=== PATIENT | male | born 1965 | race Caucasian/White ===

== ENCOUNTER 2018-03-04 11:36 | Outpatient (CLI) | payer OTHER ==
[2014-11-14 09:11] VITALS: BP 109/66
--- NOTE | 2018-03-04 18:03 | Diagnostic Imaging Report ---
DORETHA CHEEK [facility] [address] [facility] [address] [place], [place]. [address] Report Submission Date: March 04, 2018 12:28:12 PM CDT Patient Study Name: NIRMAL LANE Date: March 04, 2018 11:46:18 AM CDT Modality Type: DX Gender: M Description: SPINE : 69 Institution: [facility] Physician: DORETHA CHEEK Examination: Plain film lumbar spine History: PT C/O LOW BACK PAIN AFTER CRASHING ON A MOWER 2 WEEKS AGO. (Hx) Findings: 3 views of the lumbar spine demonstrates mild wedging of the L1 vertebral body. Scattered osteophytes. No abnormal listhesis. No prevertebral normality. Impression: Mild L1 wedging: chronicity indeterminate without older exams. Scattered degenerative changes. Consider obtaining MRI to evaluate for marrow edema. Electronically signed on March 04, 2018 12:28:12 PM CDT by: Satya URIAS
== END 2018-03-04 11:38 ==
LOC: RAD 11:36
PROVIDERS: ATTEND Family Medicine
DX: M54.5 Low back pain (principal)
CPT/HCPCS: 72100

== ENCOUNTER 2018-05-05 14:32 | Emergency (ER) | payer BC, OTHER ==
--- NOTE | 2018-05-05 14:48 | ED Physician Documentation ---
General Adult - HISTORIAN Historian: patient - HPI Stated Complaint: R thumb pain Chief Complaint: Upper Extremity Injury Timing: still present - ROS CONST: no problems. denies: fever, chills - PAST HX Past History: hypertension, other Allergies/Adverse Reactions: Allergies Allergy/AdvReac Type Severity Reaction Status Date / Time No Known Allergies Allergy Verified 05/05/18 14:43 Home Medications: Ambulatory Orders Medication Instructions Recorded Ranitidine HCl [Heartburn Relief] 1 tab PO DAILY 05/05/18 - SOCIAL HX Smoking History: non-smoker Alcohol Use: none Drug Use: none - FAMILY HX Family History: No - VITAL SIGNS Vital Signs: Vital Signs Temp Pulse Resp BP Pulse Ox 97.2 F L 60 17 116/70 95 05/05/18 14:40 05/05/18 14:40 05/05/18 14:40 05/05/18 14:40 05/05/18 14:40 - REVIEWED ASSESSMENTS Nursing Assessment Reviewed: Yes Vitals Reviewed: Yes ED Results Lab/Radiology - Radiology Radiology Impressions: Examination: Plain film right hand History: RT HAND, PAIN/SWELLING RT THENAR EMINENCE AFTER HITTING HAND WITH WRENCH TODAY (Hx) Comparison exams: None available Findings: 3 views the hand demonstrate normal cortical margins. Minimal articular degenerative spurring. No fracture. No dislocation. No soft tissue abnormality. Impression: No acute appearing osseous abnormality. General Adult Physical Exam - PHYSICAL EXAM GENERAL APPEARANCE: mild distress RESPIRATORY: no resp distress, chest non-tender, breath sounds normal. No: wheezes, rales CVS: reg rate & rhythm, heart sounds normal, equal pulses, no murmur SKIN: warm/dry EXTREMITIES: other (swelling to the thenar eminence area, no ecchymosis noted, tenderness over the area. No bony abnl noted. Cap refill good, sensation normal ) NEURO: mood/affect nml, cognition normal Discharge Clincal Impression: Contusion of right hand Qualifiers: Encounter type: initial encounter Qualified Code(s): S60.221A - Contusion of right hand, initial encounter Referrals: Braxton Prieto MD [Primary Care Provider] - 2 Days Additional Instructions: Keep hand elevated with a cool compress. Wear thumb splint if it seems to help. Take Tylenol or Ibuprofen as needed for pain. If you continue to have some problems let me know. Condition: Stable Disposition: 01 HOME, SELF-CARE Decision to Admit: NO Date of Decison to Admit: 05/05/18 Decision Time: 15:37
[2018-05-05 15:10] VITALS: BP 116/70
--- NOTE | 2018-05-06 07:02 | Diagnostic Imaging Report ---
DORETHA CHEEK [facility] [address] [facility] [address]. [address] Report Submission Date: May 05, 2018 3:33:29 PM CDT Patient Study Name: NIRMAL LANE Date: May 05, 2018 2:49:32 PM CDT Modality Type: DX Gender: M Description: UPPER EXTREMITY : 69 Institution: [facility] Physician: DORETHA CHEEK Examination: Plain film right hand History: RT HAND, PAIN/SWELLING RT THENAR EMINENCE AFTER HITTING HAND WITH WRENCH TODAY (Hx) Comparison exams: None available Findings: 3 views the hand demonstrate normal cortical margins. Minimal articular degenerative spurring. No fracture. No dislocation. No soft tissue abnormality. Impression: No acute appearing osseous abnormality. Electronically signed on May 05, 2018 3:33:29 PM CDT by: Satya URIAS
== END 2018-05-05 15:46 | disposition home or self-care (01) ==
LOC: ED 14:32
DX: S60.221A Contusion of right hand, initial encounter (principal); W23.1XXA Caught, crushed, jammed, or pinched between stationary objects, initial encounter; Y92.9 Unspecified place or not applicable; Y93.9 Activity, unspecified; Y99.9 Unspecified external cause status
CPT/HCPCS: 73130; 99283

== ENCOUNTER 2019-05-08 10:06 | Emergency (ER) | payer OTHER ==
[2019-05-08 10:30] VITALS: BP 107/60
--- NOTE | 2019-05-08 11:19 | ED Physician Documentation ---
General Adult - HPI Stated Complaint: fever, fatigue, nausea, tick bites Chief Complaint: General Adult Additional Information: Patient states that he has a 3 day history of fever up to 102, chill, headache, nausea, myalgia, no rash noted. Had about 30 tick bites on the 27 of April. Patient states they were all different types of ticks. NO other family member ill. Deneis any food poisoning. Onset: days ago (3 days ago) Timing: still present Severity: mild - ROS CONST: fever, chills EYES/ENT: none CVS/RESP: none. denies: chest pain, shortness of breath, cough GI/: nausea (mild). denies: abdominal pain, problems urinating, vomiting MS/SKIN/LYMPH: joint pain NEURO/PSYCH: headache. denies: numbness, difficulty walking, difficulty with speech - PAST HX Past History: hypertension Other History: none Surgeries/Procedures: none Allergies/Adverse Reactions: Allergies Allergy/AdvReac Type Severity Reaction Status Date / Time No Known Allergies Allergy Verified 05/08/19 10:23 Home Medications: Ambulatory Orders Medication Instructions Recorded Ranitidine HCl [Heartburn Relief] 1 tab PO DAILY 05/05/18 Doxycycline [Vibramycin] 100 mg PO BID #20 capsule 05/08/19 - SOCIAL HX Smoking History: non-smoker Alcohol Use: none Drug Use: none - FAMILY HX Family History: Yes (father lymphoma, ) - VITAL SIGNS Vital Signs: Vital Signs Temp Pulse Resp BP Pulse Ox 97.8 F 69 16 107/60 96 05/08/19 10:07 05/08/19 10:07 05/08/19 10:07 05/08/19 10:07 05/08/19 10:07 Progress - Results/Orders Results/Orders: Patient has leukopenia, thrombocytopenia, mild lelvated AST. Suspect patient has ehrlickiosis. ED Results Lab/Radiology - Orders Orders: ED Orders Category Date Time Status CBC/PLATELET/DIFF Routine Lab 05/08/19 Ordered CMP Routine Lab 05/08/19 Ordered TICK PROFILE Routine Lab 05/08/19 Ordered General Adult Physical Exam - PHYSICAL EXAM GENERAL APPEARANCE: [id number] N EENT: eye inspection normal, ENT inspection normal, pharynx normal, no signs of dehydration, SHARLA, no nystagmus, TM's nml NECK: normal inspection, thyroid normal, supple. No: lymphadenopathy, stiff neck RESPIRATORY: no resp distress, chest non-tender, breath sounds normal CVS: reg rate & rhythm, heart sounds normal, equal pulses, no murmur, no gallop, PMI nml, no JVD, no friction rub, 24 ABDOMEN: soft, no organomegaly, normal bowel sounds, no abdominal bruit, no distension, non-tender. No: hepatomegaly BACK: normal inspection, no CVA tenderness SKIN: normal color, warm/dry, NR, INT, PAL, DR EXTREMITIES: non-tender, normal range of motion, no evidence of injury, no edema, J, CATERING ATTENDANT NEURO: oriented X3, CN's nml as tested, motor nml, sensation nml, mood/affect nml Discharge Clincal Impression: Tick-borne disease Prescriptions: Doxycycline [Vibramycin] 100 mg PO BID #20 capsule Referrals: Braxton Prieto MD [Primary Care Provider] - 2 Days Additional Instructions: Start taking Doxycycline today (two tablets). If symptoms get worse or are not improving in the next 5-7 days to let me know. Condition: Stable Disposition: 01 HOME, SELF-CARE Decision to Admit: NO Date of Decison to Admit: 05/08/19 Decision Time: 11:48
[2019-05-08 11:33] LABS: BASOPHILS % 1.2 % (0.0-1.5); NEUTROPHILS # 1.6 # k/uL (1.4-7.7)
[2019-05-08 11:39] LABS: eGFR (Non-African) > 60
== END 2019-05-08 12:08 | disposition home or self-care (01) ==
LOC: ED 10:06
DX: A93.8 Other specified arthropod-borne viral fevers (principal)
CPT/HCPCS: 80053; 85025; 86618; 86666; 86757; 99281; 99283

== ENCOUNTER 2019-08-24 09:48 | Emergency (ER) | payer OTHER ==
[2019-08-24 10:18] LABS: BASOPHILS % 0.6 % (0.0-1.5); NEUTROPHILS # 3.7 # k/uL (1.4-7.7)
[2019-08-24 10:28] LABS: eGFR (Non-African) > 60
--- NOTE | 2019-08-24 11:10 | ED Physician Documentation ---
General Adult - HISTORIAN Historian: patient - HPI Stated Complaint: weakness Chief Complaint: General Adult Further Comments: yes (53 year old male patient presents with complaints of "weakness" and "don't feel right". Patient states symptoms began while he was fertilizing the yard. Denies chest pain, shortness of breath, or focal weakness. States he has been feeling fine before this episode. Cannot recall last time he had a "wellness" visit.) - ROS CONST: weakness (single episode of "weakness"). denies: fever, sweating, recent illness, weight loss, chills EYES/ENT: none CVS/RESP: none GI/: other (epigastric "burp" sensation for past month). denies: abdominal pain, problems urinating, vomiting, nausea, diarrhea, black stools MS/SKIN/LYMPH: none NEURO/PSYCH: denies: headache, fainting, dizziness, tingling, numbness, difficulty walking, difficulty with speech, anxiety, depression, other - PAST HX Past History: hypertension, other (GERD) Allergies/Adverse Reactions: Allergies Allergy/AdvReac Type Severity Reaction Status Date / Time No Known Allergies Allergy Verified 08/24/19 10:23 Home Medications: Ambulatory Orders Medication Instructions Recorded Famotidine [Pepcid] 20 mg PO BID 08/24/19 - SOCIAL HX Smoking History: non-smoker - FAMILY HX Family History: No - VITAL SIGNS Vital Signs: Vital Signs Temp Pulse Resp BP Pulse Ox 97.3 F L 74 16 139/80 96 08/24/19 09:52 08/24/19 09:52 08/24/19 09:52 08/24/19 09:52 08/24/19 09:52 - REVIEWED ASSESSMENTS Nursing Assessment Reviewed: Yes Vitals Reviewed: Yes Progress - Progress Progress: Extensive discussion with patient regarding wellness, GERD and follow up care. Verbalized understanding of instructions. ED Results Lab/Radiology - Lab Results Lab Results: Lab Results 08/24/19 08/24/19 10:14 10:14 WBC 9.00 K/ul K/ul (4.00-12.00) RBC 5.10 M/ul M/ul (3.90-5.20) Hgb 16.2 g/dL g/dL (12.0-18.0) Hct 46.4 % % (37.0-53.0) MCV 91.0 fl fl (80.0-100.0) MCH 31.8 pg pg (28.0-34.0) MCHC 34.9 g/dL g/dL (30.0-36.0) RDW 12.2 % % (11.3-14.3) Plt Count 282 K/mm3 K/mm3 (130-400) Neut % (Auto) 40.7 % % (39.0-79.0) Lymph % (Auto) 47.3 % % (16.0-50.0) [place] % (Auto) 6.4 % % (0.0-11.0) Eos % (Auto) 5.0 % % (0.0-6.8) Baso % (Auto) 0.6 % % (0.0-1.5) Neut # (Auto) 3.7 # k/uL # k/uL (1.4-7.7) Lymph # (Auto) 4.2 # k/uL H # k/uL (0.6-4.0) [place] # (Auto) 0.6 # k/uL # k/uL (0.0-0.9) Eos # (Auto) 0.5 # k/uL # k/uL (0.0-0.6) Baso # (Auto) 0.1 # k/uL # k/uL (0.0-0.5) Sodium 143 mmol/L mmol/L (137-145) Potassium 3.9 mmol/L mmol/L (3.5-5.1) Chloride 107 mmol/L mmol/L (98-107) Carbon Dioxide 23 mmol/L mmol/L (22-30) Anion Gap 16.9 BUN 22 mg/dL H mg/dL (9-20) Creatinine 1.07 mg/dL mg/dL (0.66-1.25) Est GFR ( Amer) > 60 (60 - ) Est GFR (Non-Af Amer) > 60 (60 - ) Glucose 106 mg/dL mg/dL (74-106) Calcium 9.3 mg/dL mg/dL (8.4-10.2) Total Bilirubin 0.7 mg/dL mg/dL (0.2-1.3) AST 31 U/L U/L (15-46) ALT 19 U/L U/L (0-50) Alkaline Phosphatase 49 U/L U/L (38-126) Total Protein 8.3 g/dL H g/dL (6.3-8.2) Albumin 4.5 g/dL g/dL (3.5-5.0) - Orders Orders: ED Orders Category Date Time Status Place IV Lock 1T Care 08/24/19 10:14 Active CBC/PLATELET/DIFF Stat Lab 08/24/19 10:14 Completed CMP Stat Lab 08/24/19 10:14 Completed EKG WITH COMPARISON Stat Ther 08/24/19 09:59 Completed General Adult Physical Exam - PHYSICAL EXAM GENERAL APPEARANCE: [id number] N EENT: eye inspection normal, SHARLA RESPIRATORY: no resp distress, chest non-tender, breath sounds normal CVS: reg rate & rhythm, heart sounds normal, equal pulses, no murmur, no gallop, PMI nml, no JVD, no friction rub, 24 ABDOMEN: soft, no organomegaly, normal bowel sounds, no abdominal bruit, no distension BACK: normal inspection, no CVA tenderness SKIN: normal color, warm/dry, NR, INT, PAL, DR EXTREMITIES: non-tender, normal range of motion, no evidence of injury, no edema, J, [employer] SUPERVISOR NEURO: oriented X3, CN's nml as tested, motor nml, sensation nml, mood/affect nml Discharge Clincal Impression: GERD (gastroesophageal reflux disease) Qualifiers: Esophagitis presence: esophagitis presence not specified Qualified Code(s): K21.9 - Gastro-esophageal reflux disease without esophagitis Referrals: Braxton Prieto MD [Primary Care Provider] - 2 Days Additional Instructions: Make a follow up wellness appointment with your primary care doctor for re- evaluation. Change your pepcid dose to 40mg at bedtime. Condition: Stable Disposition: 01 HOME, SELF-CARE Decision to Admit: NO Decision Time: 11:10
[2019-08-24 11:39] VITALS: BP 126/77
== END 2019-08-24 11:11 | disposition home or self-care (01) ==
LOC: ED 09:48
DX: K21.9 Gastro-esophageal reflux disease without esophagitis (principal)
CPT/HCPCS: 80053; 85025; 93005; 99283; S1016